=== PATIENT | male | born 1965 | race Caucasian/White ===

== ENCOUNTER 2016-11-11 09:12 | Day surgery (SDC) | payer BC ==
[~2016-11-11 09:12] MED LIST: Lactated Ringers 1,000 ML IV SCH; ceFAZolin 2 GM in Premix Bag 1 BAG IV ONE
[2016-11-11] MEDS ORDERED: Lidocaine 2% 5 ML SDV ONE (09:16)
[2016-11-11] MEDS ORDERED: Neostigmine Methylsulfate 1 MG/ML 5 ML Syringe ONE (09:16)
[2016-11-11] MEDS ORDERED: Rocuronium 10 MG/ML 10 ML Syringe ONE (09:16)
[2016-11-11] MEDS ORDERED: Ondansetron 4 MG/2 ML SDV ONE (09:16)
[2016-11-11] MEDS ORDERED: fentaNYL 100 MCG/2 ML SDV ONE ×3 (09:17→12:03)
[2016-11-11] MEDS ORDERED: Midazolam 1 MG/ML 2 ML SDV ONE (09:17)
[2016-11-11] MEDS ORDERED: Propofol 200 MG/20 ML SDV ONE (09:17)
[2016-11-11] MEDS ORDERED: Octyl 2-Cyanoacrylate 1 Tube ONE (09:28)
[2016-11-11] MEDS ORDERED: Bupivacaine 0.25%/EPINEPHrine 1:200,000 10 ML SDV ONE (09:28)
[2016-11-11] MEDS ORDERED: Scopolamine 1.5 MG Transdermal Patch TRDERM PRN (10:09)
--- NOTE | 2016-11-11 10:13 | PCM.PREANE ---
Preanesthetic Assessment - Anesthesia/Transfusion/Family Hx Anesthesia History: Prior Anesthesia Without Reaction Family History of Anesthesia Reaction: No Transfusion History: No Prior Transfusion(s) Intubation History: Unknown - Review of Systems General: No Symptoms Pulmonary: No Symptoms Cardiovascular: No Symptoms Gastrointestinal: Abdominal Pain Neurological: No Symptoms Other: Reports: None - Physical Assessment ASA Class: 2 Mental Status: Alert & Oriented x3 Airway Class: Mallampati = 2 Dentition: Reports: Normal Dentition Thyro-Mental Finger Breadths: 3 Mouth Opening Finger Breadths: 2 ROM/Head Extension: Full Lungs: Clear to Auscultation, Normal Respiratory Effort Cardiovascular: Regular Rate, Regular Rhythm - Allergies Allergies/Adverse Reactions: Allergies Allergy/AdvReac Type Severity Reaction Status Date / Time No Known Allergies Allergy Verified 11/05/16 11:38 - Blood Blood Available: No - Anesthesia Plan Pre-Op Medication Ordered: None - Acknowledgements Anesthesia Type Planned: General Anesthesia Pt an Appropriate Candidate for the Planned Anesthesia: Yes Alternatives and Risks of Anesthesia Discussed w Pt/Guardian: Yes Pt/Guardian Understands and Agrees with Anesthesia Plan: Yes PreAnesthesia Questionnaire HEENT History: Reports: None Gastrointestinal History: Reports: Cholelithiasis, GERD Musculoskeletal History: Reports: Fracture Other Musculoskeletal History: hx of fx left wrist Endocrine/Metabolic History: Reports: Obesity/BMI 30+ - Past Surgical History HEENT Surgical History: Reports: Oral Surgery, Tonsillectomy GI Surgical History: Reports: None Musculoskeletal Surgical History: Reports: None - SUBSTANCE USE Smoking Status *Q: Current Every Day Smoker (3/4-1 ppd) Tobacco Use Within Last Twelve Months: Cigarettes Recreational Drug Use History: No - HOME MEDS Home Medications: Home Meds Esomeprazole [NexIUM] 40 mg PO DAILY 11/05/16 [History] - CURRENT (IN HOUSE) MEDS Current Meds: Current Medications Lactated Ringer's (Ringers, Lactated) 1,000 mls @ 125 mls/hr IV ASDIRECTED DAMIEN Last Admin: 11/11/16 09:54 Dose: 125 mls/hr Discontinued Medications Bupivacaine HCl/Epinephrine Bitart (Marcaine 0.25%/Epinephrine 1:200,000) Confirm Administered Dose 40 ml .ROUTE .STK-MED ONE Stop: 11/11/16 09:29 Fentanyl (Sublimaze) Confirm Administered Dose 200 mcg .ROUTE .STK-MED ONE Stop: 11/11/16 09:18 Glycopyrrolate () Confirm Administered Dose 1 mg .ROUTE .STK-MED ONE Stop: 11/11/16 09:17 Cefazolin Sodium/Dextrose 2 gm (/ Premix) 50 mls @ 100 mls/hr IV ONETIME ONE Stop: 11/11/16 05:29 Lidocaine (Xylocaine-Mpf 2%) Confirm Administered Dose 5 ml .ROUTE .STK-MED ONE Stop: 11/11/16 09:17 Midazolam HCl (Versed 1 Mg/Ml) Confirm Administered Dose 2 mg .ROUTE .STK-MED ONE Stop: 11/11/16 09:18 Neostigmine Methylsulfate (Neostigmine) Confirm Administered Dose 5 mg .ROUTE .STK-MED ONE Stop: 11/11/16 09:17 Octyl Cyanoacrylate (Dermabond Advance) Confirm Administered Dose 1 applic .ROUTE .STK-MED ONE Stop: 11/11/16 09:29 Ondansetron HCl (Zofran) Confirm Administered Dose 4 mg .ROUTE .STK-MED ONE Stop: 11/11/16 09:17 Propofol (Diprivan 20 Ml) Confirm Administered Dose 200 mg .ROUTE .STK-MED ONE Stop: 11/11/16 09:18 Rocuronium [place] (Zemuron) Confirm Administered Dose 100 mg .ROUTE .STK-MED ONE Stop: 11/11/16 09:17
[2016-11-11] MEDS ORDERED: Acetaminophen/oxyCODONE 325-10 MG Tab PO ONE (11:23)
[2016-11-11] MEDS ORDERED: ceFAZolin 1 GM Vial ONE (11:32)
[2016-11-11] MEDS ORDERED: Sodium Chloride 0.9% 20 ML ONE (11:32)
[2016-11-11] MEDS ORDERED: ePHEDrine 50 MG/ML SDV ONE (11:47)
[2016-11-11] MEDS ORDERED: Labetalol 100 MG/20 ML MDV ONE (11:56)
[2016-11-11] MEDS ORDERED: Sugammadex Sodium 200 MG/2 ML VIAL ONE (12:20)
--- NOTE | 2016-11-11 12:33 | PCM.OPNOTE ---
- General Post-Op/Procedure Note Date of Surgery/Procedure: 11/11/16 Operative Procedure(s): lap brien Findings: gb is severely adhered to surrounding organs, yellow and green, cw chronic cholecystitis, 2 large gs bigger than my thumbs; [id number] Pre Op Diagnosis: chronic and acute cholecystitis Post-Op Diagnosis: Same Anesthesia Technique: General ET Tube Primary Surgeon: Dayton Villagran Pathology: sent Complications: None Condition: Good
[2016-11-11] MEDS: fentaNYL 100 MCG/2 ML SDV IVPUSH PRN ×2 (12:52→12:57)
--- NOTE | 2016-11-11 13:09 | PCM.POSTAN ---
POST ANESTHESIA ASSESSMENT - MENTAL STATUS Mental Status: Alert, Oriented - RESPIRATORY Respiratory Status: Respiratory Rate WNL, Airway Patent, O2 Saturation Stable - CARDIOVASCULAR CV Status: Pulse Rate WNL, Blood Pressure Stable - GASTROINTESTINAL GI Status: No Symptoms - PAIN Pain Score: 3 - POST OP HYDRATION Hydration Status: Adequate & Stable
[2016-11-11] MEDS ORDERED: Acetaminophen/oxyCODONE 325-10 MG Tab ONE ×2 (13:28→13:34)
[2016-11-11] MEDS ORDERED: Ketorolac 30 MG/ML SDV IVPUSH ONE (13:51)
[2016-11-11 14:28] VITALS: BP 137/92
--- NOTE | 2016-11-11 14:39 | PCM48HPAN ---
Post Anesthesia Note - EVALUATION WITHIN 48HRS OF ANESTHETIC Vital Signs in Normal Range: Yes Patient Participated in Evaluation: Yes Respiratory Function Stable: Yes Airway Patent: Yes Cardiovascular Function Stable: Yes Hydration Status Stable: Yes Pain Control Satisfactory: Yes Nausea and Vomiting Control Satisfactory: Yes Mental Status Recovered: Yes
--- NOTE | 2016-11-11 20:29 | OR ---
SURGEON: Dayton Villagran MD DATE OF PROCEDURE: 11/11/2016 PREOPERATIVE DIAGNOSIS: Acute on chronic cholecystitis. POSTOPERATIVE DIAGNOSIS: Acute on chronic cholecystitis. PROCEDURE PERFORMED: Laparoscopic cholecystectomy. COMPLICATIONS: None. FINDINGS: Gallbladder was with severe adherence to surrounding organ and yellow and green consistent with chronic cholecystitis. Wall is not thickened. Two large gallstones bigger than your thumb. DESCRIPTION OF PROCEDURE: The patient was taken to the operating room and placed in the supine position. After the intubation of general endotracheal anesthesia, the patient's abdomen was prepped and draped in the usual sterile fashion. Using Cashkaroview, a 12 mm trocar was placed supraumbilically and then followed with pneumoperitoneum. A 5 mm trocar was placed in the epigastrium and two 5 mm trocars placed in the right upper quadrant. The placement of the last three trocars was done under direct video supervision. Upon gaining entrance to the abdominal cavity, an extensive examination was then performed. The gallbladder was located and identified and retracted to the dome of the liver at the triangle of Calot. The cystic duct was clipped three more times and then using the endoscopic clip, was transected with placement of the endoscopic clip and transection was performed with care, ensuring the posterior prong of the instruments were clearly visualized prior to exercising the procedure. The gallbladder was dissected using electrocautery out of the liver bed and then removed using endoscopic bag through the umbilical site. The gallbladder was removed en bloc and there was no bile spillage and this was then followed with extensive irrigation until the bile was clear from blood and bile. The trocars were then removed under direct video supervision. The 12 mm umbilical site was then closed with deep stitches using 0 Vicryl followed with proximal stitches using 3-0 Vicryl and Dermabond. The other three trocar sites were closed with 3-0 Vicryl followed with approximation of skin with Dermabond. The patient was then awakened and extubated and transferred to the recovery room in hemodynamically stable condition. At the conclusion of the surgery, before closing the abdominal wound, instrument count and sponge count were done and were correct. The patient tolerated the procedure well and there were no intraoperative complications. Dr. Villagran was present through the whole procedure. Just before surgery, a timeout was called. The patient was identified and procedure identified and procedure started. Intraoperative findings as dictated above. As always, thank you for the kind referral. AZIZA / MAGUI /[id number]
== END 2016-11-11 15:00 | disposition home or self-care (01) ==
LOC: MW.SDS 09:12
PROVIDERS: ATTEND Surgery
DX: K80.10 Calculus of gallbladder with chronic cholecystitis without obstruction (principal); F17.210 Nicotine dependence, cigarettes, uncomplicated; K21.9 Gastro-esophageal reflux disease without esophagitis; E66.9 Obesity, unspecified; Z79.899 Other long term (current) drug therapy; Z90.89 Acquired absence of other organs; Z68.30 Body mass index [BMI] 30.0-30.9, adult
CPT/HCPCS: 47562; A9270; C9399; J0690; J1885; J2250; J2405; J3010; J7120; 00790; 88304; J2704

== ENCOUNTER 2016-12-28 11:42 | Day surgery (SDC) | payer BC ==
[~2016-12-28 11:42] MED LIST changes: -ceFAZolin 2 GM in Premix Bag 1 BAG IV ONE
--- NOTE | 2016-12-28 12:28 | PCM.PREANE ---
Preanesthetic Assessment - Anesthesia/Transfusion/Family Hx Anesthesia History: Prior Anesthesia Without Reaction Family History of Anesthesia Reaction: No Transfusion History: No Prior Transfusion(s) Intubation History: Unknown - Review of Systems General: No Symptoms Pulmonary: No Symptoms Cardiovascular: No Symptoms Gastrointestinal: Other (intermittent rectal bleeding) Neurological: No Symptoms Other: Reports: None - Physical Assessment O2 Sat by Pulse Oximetry: 97 Respiratory Rate: 16 Vital Signs: Last Vital Signs Temp 36.2 C 12/28/16 11:56 Pulse 86 12/28/16 11:56 Resp 16 12/28/16 11:56 BP 152/105 H 12/28/16 11:56 Pulse Ox 97 12/28/16 11:56 Height: 1.83 m Weight: 102.512 kg ASA Class: 2 Mental Status: Alert & Oriented x3 Airway Class: Mallampati = 2 Dentition: Reports: Normal Dentition Thyro-Mental Finger Breadths: 3 Mouth Opening Finger Breadths: 2 ROM/Head Extension: Full Lungs: Clear to Auscultation, Normal Respiratory Effort Cardiovascular: Regular Rate, Regular Rhythm - Allergies Allergies/Adverse Reactions: Allergies Allergy/AdvReac Type Severity Reaction Status Date / Time No Known Allergies Allergy Verified 11/05/16 11:38 - Blood Blood Available: No - Anesthesia Plan Pre-Op Medication Ordered: None - Acknowledgements Anesthesia Type Planned: MAC Pt an Appropriate Candidate for the Planned Anesthesia: Yes Alternatives and Risks of Anesthesia Discussed w Pt/Guardian: Yes Pt/Guardian Understands and Agrees with Anesthesia Plan: Yes PreAnesthesia Questionnaire - Past Health History Medical/Surgical History: Denies Medical/Surgical History HEENT History: Reports: None Gastrointestinal History: Reports: Cholelithiasis (s/p cholecystectomy 11/11/16) , GERD Musculoskeletal History: Reports: Fracture Other Musculoskeletal History: hx of fx left wrist Endocrine/Metabolic History: Reports: Obesity/BMI 30+ - Past Surgical History Head Surgeries/Procedures: Reports: None HEENT Surgical History: Reports: Oral Surgery, Tonsillectomy GI Surgical History: Reports: Cholecystectomy Other GI Surgeries/Procedures: lap brien on 11/11/16 Musculoskeletal Surgical History: Reports: None - SUBSTANCE USE Smoking Status *Q: Current Every Day Smoker Tobacco Use Within Last Twelve Months: Cigarettes Recreational Drug Use History: No - HOME MEDS Home Medications: Home Meds Esomeprazole [NexIUM] 40 mg PO DAILY 11/05/16 [History] - CURRENT (IN HOUSE) MEDS Current Meds: Current Medications Lactated Ringer's (Ringers, Lactated) 1,000 mls @ 125 mls/hr IV ASDIRECTED [facility] Last Admin: 12/28/16 12:03 Dose: 125 mls/hr
[2016-12-28] MEDS ORDERED: Propofol 200 MG/20 ML SDV ONE ×2 (12:55→13:22)
[2016-12-28] MEDS ORDERED: Midazolam 1 MG/ML 2 ML SDV ONE (12:55)
--- NOTE | 2016-12-28 13:35 | PCM.OPNOTE ---
- General Post-Op/Procedure Note Date of Surgery/Procedure: 12/28/16 (c) Operative Procedure(s): colonoscopy Findings: see dict 132110 Pre Op Diagnosis: rectal bleed Post-Op Diagnosis: diverticulosis Anesthesia Technique: Moderate Sedation Primary Surgeon: Dayton Villagran Complications: None Condition: Good
[2016-12-28 14:03] VITALS: BP 151/87
--- NOTE | 2016-12-29 11:14 | OR ---
SURGEON: Dayton Villagran MD DATE OF PROCEDURE: 12/28/2016 PREOPERATIVE DIAGNOSIS: Intermittent rectal bleeding. POSTOPERATIVE DIAGNOSIS: Diverticulosis. COMPLICATIONS: None. PROCEDURE PERFORMED: Colonoscopy. DESCRIPTION OF PROCEDURE: The patient was taken to the endoscopy room. A time out was called, patient identified, and procedure identified. Diprivan was then administrated. Patient went from awake to sleep, hearing doctor talking or door closing is normal. Perineum inspection and digital examination were then performed. A well- lubricated colonoscope was gently inserted through the rectum, advanced past the rectosigmoid junction, the descending colon, splenic flexure, transverse colon, hepatic flexure, ascending colon, arrived to the cecum. Cecum was identified as dictated in the findings. Then the scope was carefully withdrawn, while attention was paid to the mucosal surface for any abnormality. Air will be sucked out during the scope withdrawal. At the rectum, retroflexed to examine any rectal diseases, fistula or hemorrhoids. Patient tolerated procedure well. There were no intraoperative complications, and Dr. Villagran was present throughout the whole procedure. FINDINGS: 1. The patient is easily sedated with LIVE[employer]OCK AGENT and Diprivan. The patient is soundly snoring. 2. The patient's bowel prep is average with some liquid stool. No semi-formed stool. 3. The patient's colon was rather straightforward. Cecum indicated by ileocecal fold, one-to-one indentation, appendiceal orifice. Light emittance is not observed. Mucosa examined upon scope pulling out, and the patient has mild diverticulosis on the left side of the colon and no signs or symptoms of diverticulitis. No inflammation, stricture, ulceration, bleeding, AV malformation, mass, growth, polyp; none of those. The patient has mild internal hemorrhoids and mild external hemorrhoids. The patient would benefit from repeat colonoscopy 10 years from today or if clinically indicated otherwise. As always, thank you for the kind referral. AZIZA / MAGUI /[id number]
== END 2016-12-28 14:16 | disposition home or self-care (01) ==
LOC: MW.SDS 11:42
PROVIDERS: ATTEND Surgery
DX: K57.30 Diverticulosis of large intestine without perforation or abscess without bleeding (principal); K21.9 Gastro-esophageal reflux disease without esophagitis; Z79.899 Other long term (current) drug therapy
CPT/HCPCS: 45378; J2250; J7120; J2704

== ENCOUNTER 2020-09-24 12:13 | Day surgery (SDC) | payer SELFPAY ==
[2020-09-24] MEDS ORDERED: Sodium Chloride 0.9% 10 ML Syringe FLUSH PRN (12:18)
[2020-09-24] MEDS ORDERED: Sodium Chloride 0.9% 2.5 ML Syringe FLUSH PRN (12:18)
--- NOTE | 2020-09-24 12:25 | EDM.PDOC ---
ED HPI GENERAL MEDICAL PROBLEM - General Chief Complaint: Abdominal Pain Stated Complaint: POSSIBLE APPENDICITIS Time Seen by Provider: 09/24/20 12:14 Source of Information: Reports: Patient History Limitations: Reports: No Limitations - History of Present Illness INITIAL COMMENTS - FREE TEXT/NARRATIVE: HISTORY AND PHYSICAL: History of present illness: Patient is a 54-year-old male who presents to the emergency room with complaints of right lower quadrant pain that started at 0100 this morning. Pain has progressively become more significant and is associated with nausea and vomiting. Abdomen is tender to touch. States he feels lightheaded and generally unwell. Patient denies any fever, chills, headache, change in vision, syncope or near syncope. Denies any chest pain, back pain, shortness of breath or cough. Denies any diarrhea, constipation or dysuria. Has not noted any blood in urine or stool. Denies any testicular pain, redness or swelling. Patient has been eating and drinking appropriately. Last ate/drank at 0700. Review of systems: As per history of present illness and below otherwise all systems reviewed and negative. Past medical history: As per history of present illness and as reviewed below otherwise noncontributory. Surgical history: As per history of present illness and as reviewed below otherwise noncontributory. Social history: See social history for further information Family history: As per history of present illness and as reviewed below otherwise noncontributory. Physical exam: General: Well developed and well nourished 54 year old male. Alert and orientated x 3. Nontoxic in appearance and in no acute distress. Vital signs are stable and have been reviewed by me. Nursing notes were reviewed. HEENT: Atraumatic, normocephalic, pupils equal and reactive bilaterally, negative for conjunctival pallor or scleral icterus, mucous membranes moist, trachea midline. No drooling or trismus noted. No meningeal signs. No hot potato voice noted. Lungs: Clear to auscultation bilaterally. No wheezes, rales, or rhonchi. Chest nontender. Normal work of breathing, no accessory muscles used. Heart: S1S2, regular rate and rhythm without overt murmur, gallops, or rubs. No JVD. No peripheral edema Abdomen: Soft, nondistended, RLQ tenderness, +rebound tenderness. Normoactive bowel sounds. Negative for masses or costovertebral tenderness. Skin: Intact, warm, dry. No lesions or rashes noted. Hematologic: No petechiae or purpra. Mucosa appropriate color and normal nail bed color and refill. Extremities: Atraumatic, moves all extremities per self without difficulty or deficits, negative for cords or calf pain. Neurovascular unremarkable. Neuro: Awake, alert, oriented. Cranial nerves II through XII unremarkable. Cerebellum unremarkable. Motor and sensory unremarkable throughout. Exam nonfocal. Psychiatric: Mood and affect are appropriate. Normal thought process. Answering questions appropriately. Notes: *This patient was seen and evaluated during the 2019 SARS-CoV-2 novel coronavirus pandemic period. Community viral transmission is ongoing at time of this encounter and the emergency department is operating under pandemic response procedures. Patient is a 54-year-old male who presents to the emergency room with complaints of right lower quadrant pain, nausea and vomiting. He is concerned he has appendicitis. + RLQ tenderness upon evaluation. Last ate or drank at 7 AM this morning. Patient was educated on n.p.o. status and is agreeable to diagnostics. Acute uncomplicated appendicitis. Multiple large appendicoliths. No evidence of perforation or abscess. 1500: Dr Amador was informed of patient and will come to ER shortly. Patient is aware of diagnostic findings. He states his nasuea and pain is starting to "creep back", will give him additional medication for symptomatic relief. VSS. Will swab for COVID-19 prior to the OR. Negative COVID-19. VSS. Patient resting quietly, offers no complaints or concerns as this time. 1600: Dr Amador here to see patient. Diagnostics: CBC, CMP, Lipase, UA Therapeutics: IV fluids, zofran, morphine Impression: Appendicitis Plan: To OR Definitive disposition and diagnosis as appropriate pending reevaluation and review of above. RLQ Pain Score (Numeric/FACES): 8 - Related Data Allergies Allergy/AdvReac Type Severity Reaction Status Date / Time No Known Allergies Allergy Verified 09/24/20 12:37 Home Meds: Home Meds Esomeprazole [NexIUM] 40 mg PO DAILY 11/05/16 [History] Past Medical History - Past Health History Medical/Surgical History: Denies Medical/Surgical History HEENT History: Reports: None Gastrointestinal History: Reports: Cholelithiasis (s/p cholecystectomy 11/11/16), GERD Musculoskeletal History: Reports: Fracture Other Musculoskeletal History: hx of fx left wrist Endocrine/Metabolic History: Reports: Obesity/BMI 30+ - Past Surgical History Head Surgeries/Procedures: Reports: None HEENT Surgical History: Reports: Oral Surgery, Tonsillectomy GI Surgical History: Reports: Cholecystectomy Other GI Surgeries/Procedures: lap brien on 11/11/16 Musculoskeletal Surgical History: Reports: None Social & Family History - Family History Family Medical History: No Pertinent Family History ED ROS GENERAL - Review of Systems Review Of Systems: Comprehensive ROS is negative, except as noted in HPI. ED EXAM, GI/ABD - Physical Exam Exam: See Below (See dictation) Course - Vital Signs Last Recorded V/S: Last Vital Signs Temp 95.8 F L 09/24/20 12:35 Pulse 67 09/24/20 15:49 Resp 18 09/24/20 15:49 BP 194/101 H 09/24/20 15:49 Pulse Ox 95 09/24/20 15:49 - Orders/Labs/Meds Orders: Active Orders 24 hr Category Date Time Status Admission Status [Patient Status] [ADT] Stat ADT 09/24/20 15:02 Active UA RFX ROB AND CULT IF INDIC [URIN] Stat Lab 09/24/20 15:57 Received Lactated Ringers [Ringers, Lactated] 1,000 ml Med 09/24/20 14:00 Active IV ASDIRECTED Sodium Chloride 0.9% [Saline Flush] Med 09/24/20 12:18 Active 10 ml FLUSH ASDIRECTED PRN Sodium Chloride 0.9% [Saline Flush] Med 09/24/20 12:18 Active 2.5 ml FLUSH ASDIRECTED PRN Saline Lock Insert [OM.PC] Stat Oth 09/24/20 12:18 Ordered Medication Orders Lactated Ringer's (Ringers, Lactated) 1,000 mls @ 100 mls/hr IV ASDIRECTED DAMIEN Last Admin: 09/24/20 13:51 Dose: 100 mls/hr Documented by: MURDNIC Sodium Chloride (Sodium Chloride 0.9% 10 Ml Syringe) 10 ml FLUSH ASDIRECTED PRN PRN Reason: Keep Vein Open Last Admin: 09/24/20 12:43 Dose: 10 ml Documented by: GROTALI Sodium Chloride (Sodium Chloride 0.9% 2.5 Ml Syringe) 2.5 ml FLUSH ASDIRECTED PRN PRN Reason: Keep Vein Open Last Admin: 09/24/20 12:43 Dose: 2.5 ml Documented by: LADONNA Labs: Laboratory Tests 09/24/20 09/24/20 09/24/20 Range/Units 12:46 12:46 14:57 WBC 10.63 (4.0-11.0) K/uL RBC 5.45 (4.50-5.90) M/uL Hgb 15.4 (13.0-17.0) g/dL Hct 46.1 (38.0-50.0) % MCV 84.6 (80.0-98.0) fL MCH 28.3 (27.0-32.0) pg MCHC 33.4 (31.0-37.0) g/dL RDW Std Deviation 41.4 (28.0-62.0) fl RDW Coeff of Tammie 14 (11.0-15.0) % Plt Count 351 (150-400) K/uL MPV 9.80 (7.40-12.00) fL Neut % (Auto) 81.0 H (48.0-80.0) % Lymph % (Auto) 11.4 L (16.0-40.0) % [place] % (Auto) 6.4 (0.0-15.0) % Eos % (Auto) 0.9 (0.0-7.0) % Baso % (Auto) 0.3 (0.0-1.5) % Neut # (Auto) 8.6 H (1.4-5.7) K/uL Lymph # (Auto) 1.2 (0.6-2.4) K/uL [place] # (Auto) 0.7 (0.0-0.8) K/uL Eos # (Auto) 0.1 (0.0-0.7) K/uL Baso # (Auto) 0.0 (0.0-0.1) K/uL Nucleated RBC % 0.0 /100WBC Nucleated RBCs # 0 K/uL Sodium 139 (136-148) mmol/L Potassium 4.2 (3.5-5.1) mmol/L Chloride 103 (98-107) mmol/L Carbon Dioxide 30.2 (21.0-32.0) mmol/L BUN 10 (7.0-18.0) mg/dL Creatinine 1.3 (0.8-1.3) mg/dL Est Cr Clr Drug Dosing 72.13 mL/min Estimated GFR (MDRD) 57.7 ml/min Glucose 142 H (74-106) mg/dL Calcium 9.1 (8.5-10.1) mg/dL Total Bilirubin 0.3 (0.2-1.0) mg/dL AST 17 (15-37) IU/L ALT 32 (14-63) IU/L Alkaline Phosphatase 97 (46-116) U/L Total Protein 8.2 (6.4-8.2) g/dL Albumin 4.3 (3.4-5.0) g/dL Globulin 3.9 (2.6-4.0) g/dL Albumin/Globulin Ratio 1.1 (0.9-1.6) SARS-CoV-2 RNA (ELISE) NEGATIVE (NEGATIVE) Meds: Medications Generic Name Dose Route Start Last Admin Trade Name Freq PRN Reason Stop Dose Admin Lactated Ringer's 1,000 mls @ 100 mls/hr 09/24/20 14:00 09/24/20 13:51 Ringers, Lactated IV 100 mls/hr ASDIRECTED DAMIEN Administration Sodium Chloride 10 ml 09/24/20 12:18 09/24/20 12:43 Sodium Chloride 0.9% 10 Ml Syringe FLUSH 10 ml ASDIRECTED PRN Administration Keep Vein Open Sodium Chloride 2.5 ml 09/24/20 12:18 09/24/20 12:43 Sodium Chloride 0.9% 2.5 Ml Syringe FLUSH 2.5 ml ASDIRECTED PRN Administration Keep Vein Open Discontinued Medications Generic Name Dose Route Start Last Admin Trade Name Freq PRN Reason Stop Dose Admin Sodium Chloride 1,000 mls @ 999 mls/hr 09/24/20 12:37 09/24/20 12:43 Normal Saline IV 09/24/20 13:37 999 mls/hr STAT ONE Administration Iopamidol 100 ml 09/24/20 14:32 09/24/20 14:32 Iopamidol 755 Mg/Ml 500 Ml Multipack Bottle IVPUSH 09/24/20 14:33 100 ml ONETIME STA Administration Morphine Sulfate 4 mg 09/24/20 12:37 09/24/20 12:44 Morphine 4 Mg/Ml Syringe IVPUSH 09/24/20 12:38 4 mg ONETIME ONE Administration Morphine Sulfate 4 mg 09/24/20 13:41 09/24/20 13:46 Morphine 4 Mg/Ml Syringe IVPUSH 09/24/20 13:42 4 mg ONETIME ONE Administration Morphine Sulfate 4 mg 09/24/20 15:05 09/24/20 15:25 Morphine 4 Mg/Ml Syringe IVPUSH 09/24/20 15:06 4 mg ONETIME ONE Administration Ondansetron HCl 4 mg 09/24/20 12:37 09/24/20 12:44 Ondansetron 4 Mg/2 Ml Sdv IVPUSH 09/24/20 12:38 4 mg ONETIME ONE Administration Ondansetron HCl 4 mg 09/24/20 15:05 09/24/20 15:25 Ondansetron 4 Mg/2 Ml Sdv IVPUSH 09/24/20 15:06 4 mg ONETIME ONE Administration Departure - Departure Time of Disposition: 16:12 Disposition: Still A Patient 30 Clinical Impression: Appendicitis Qualifiers: Appendicitis type: acute appendicitis Acute appendicitis type: with localized peritonitis Appendicitis gangrene presence: without gangrene Appendicitis perforation presence: without perforation Appendicitis abscess presence: without abscess Qualified Code(s): K35.30 - Acute appendicitis with localized peritonitis, without perforation or gangrene - Discharge Information Referrals: PCP,None [Primary Care Provider] - Forms: ED Department Discharge Sepsis Event Note (ED) - Focused Exam Vital Signs: Vital Signs Temp Pulse Resp BP Pulse Ox 09/24/20 15:49 67 18 194/101 H 95 09/24/20 14:00 62 16 185/94 H 97 09/24/20 13:17 62 18 178/93 H 96 09/24/20 12:35 95.8 F L 75 18 169/101 H 97 - My Orders Last 24 Hours: My Active Orders 09/24/20 12:18 Sodium Chloride 0.9% [Saline Flush] 10 ml FLUSH ASDIRECTED PRN Sodium Chloride 0.9% [Saline Flush] 2.5 ml FLUSH ASDIRECTED PRN Saline Lock Insert [OM.PC] Stat 09/24/20 14:00 Lactated Ringers [Ringers, Lactated] 1,000 ml IV ASDIRECTED 09/24/20 15:02 Admission Status [Patient Status] [ADT] Stat 09/24/20 15:57 UA RFX ROB AND CULT IF INDIC [URIN] Stat - Assessment/Plan Last 24 Hours: My Active Orders 09/24/20 12:18 Sodium Chloride 0.9% [Saline Flush] 10 ml FLUSH ASDIRECTED PRN Sodium Chloride 0.9% [Saline Flush] 2.5 ml FLUSH ASDIRECTED PRN Saline Lock Insert [OM.PC] Stat 09/24/20 14:00 Lactated Ringers [Ringers, Lactated] 1,000 ml IV ASDIRECTED 09/24/20 15:02 Admission Status [Patient Status] [ADT] Stat 09/24/20 15:57 UA RFX ROB AND CULT IF INDIC [URIN] Stat
[2020-09-24] MEDS ORDERED: Ondansetron 4 MG/2 ML SDV IVPUSH ONE ×2 (12:37→15:05)
[2020-09-24] MEDS ORDERED: Morphine 4 MG/ML Syringe IVPUSH ONE ×3 (12:37→15:05)
[2020-09-24] MEDS ORDERED: Sodium Chloride 0.9% 1,000 ML IV ONE (12:37)
[2020-09-24 13:11] LABS: CARBON DIOXIDE,CO2 30.2 mmol/L (21.0-32.0); POTASSIUM,K 4.2 mmol/L (3.5-5.1)
[2020-09-24] MEDS ORDERED: Lactated Ringers 1,000 ML IV SCH ×2 (14:00→16:30)
[2020-09-24] MEDS ORDERED: Iopamidol 755 MG/ML 500 ML Multipack Bottle IVPUSH STA (14:32)
--- NOTE | 2020-09-24 14:51 | CT ---
INDICATION: Extreme right lower quadrant pain. TECHNIQUE: CT of the abdomen and pelvis with 100 cc Isovue 370 IV contrast. Coronal and sagittal reconstructions. COMPARISON: None. FINDINGS: The liver, spleen, pancreas, and adrenal glands are negative. Splenule. Cholecystectomy. Hepatic and portal veins are patent. Symmetric enhancement of the kidneys. No hydronephrosis or ureteral dilation. No obstructing urinary calculi. The bladder is normal in appearance. Mildly enlarged prostate gland. Small fat containing right inguinal hernia. The appendix is dilated and fluid-filled with mild surrounding inflammatory fat stranding, measuring up to 1.6 cm in diameter (series 201, image 115 and series 203, image 58). Findings are compatible with acute appendicitis. There are multiple large appendicoliths. No fluid collection to suggest abscess. No intraperitoneal free air or fluid. Mild sigmoid diverticulosis. No small bowel dilation. Aortic vascular calcifications. No lymphadenopathy. The bones are unremarkable. The lung bases are clear. IMPRESSION: Acute uncomplicated appendicitis. Multiple large appendicoliths. No evidence of perforation or abscess. Please note that all CT scans at this facility use dose modulation, iterative reconstruction, and/or weight-based dosing when appropriate to reduce radiation dose to as low as reasonably achievable. Dictated by Karina Goncalves MD @ 09/24/2020 2:50:[address] Karina Goncalves @ Sep 24 2020 2:50PM
[2020-09-24] MEDS ORDERED: cefOXitin 2 GM in Premix Bag 1 BAG IV ONE (16:19)
[2020-09-24] MEDS ORDERED: Lidocaine 2% 5 ML SDV ONE (16:27)
[2020-09-24] MEDS ORDERED: Glycopyrrolate 0.2 MG/ML SDV ONE (16:27)
[2020-09-24] MEDS ORDERED: Ketorolac 30 MG/ML SDV ONE (16:27)
[2020-09-24] MEDS ORDERED: Metoclopramide 10 MG/2 ML SDV ONE (16:27)
[2020-09-24] MEDS ORDERED: Rocuronium Bromide 50 MG/5 ML Syringe ONE (16:27)
[2020-09-24] MEDS ORDERED: Sugammadex Sodium 200 MG/2 ML VIAL ONE (16:27)
[2020-09-24] MEDS ORDERED: Ondansetron 4 MG/2 ML SDV ONE (16:27)
[2020-09-24] MEDS ORDERED: Dexamethasone 4 MG/ML 5 ML MDV ONE (16:27)
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
[2020-09-24] MEDS ORDERED: Ketamine 500 mg/10 ML MDV ONE (16:28)
[2020-09-24] MEDS ORDERED: Succinylcholine/Sod PF 100 MG/5 ML SYRINGE IV ONE (16:29)
[2020-09-24] MEDS ORDERED: fentaNYL 250 MCG/5 ML SDV ONE (16:29)
[2020-09-24] MEDS ORDERED: Propofol 200 MG/20 ML SDV ONE (16:30)
[2020-09-24] MEDS ORDERED: Dexmedetomidine 200 MCG/2 ML SDV ONE (16:36)
[2020-09-24] MEDS ORDERED: Sodium Chloride 0.9% 20 ML ONE (16:40)
[2020-09-24] MEDS ORDERED: Bupivacaine 0.5% 30 ML SDV ONE (16:41)
[2020-09-24] MEDS ORDERED: ceFAZolin 1 GM Vial ONE (16:41)
--- NOTE | 2020-09-24 16:56 | PCM.PREANE ---
Preanesthetic Assessment - Anesthesia/Transfusion/Family Hx Anesthesia History: Prior Anesthesia Without Reaction Family History of Anesthesia Reaction: No Transfusion History: No Prior Transfusion(s) Intubation History: Unknown - Review of Systems Pulmonary: Other (smokes) Cardiovascular: No Symptoms Gastrointestinal: Abdominal Pain Neurological: No Symptoms Other: Reports: None - Physical Assessment NPO Status Date: 09/24/20 NPO Status Time: 07:00 Vital Signs: Last Vital Signs Temp 35.4 C L 09/24/20 12:35 Pulse 67 09/24/20 15:49 Resp 18 09/24/20 15:49 BP 194/101 H 09/24/20 15:49 Pulse Ox 95 09/24/20 15:49 Height: 6 ft Weight: 99.79 kg ASA Class: 2E Mental Status: Alert & Oriented x3 Airway Class: Mallampati = 2 Dentition: Reports: Normal Dentition Thyro-Mental Finger Breadths: 3 Mouth Opening Finger Breadths: 3 ROM/Head Extension: Full Lungs: Clear to Auscultation, Normal Respiratory Effort Cardiovascular: Regular Rate, Regular Rhythm - Lab Values: Laboratory Last Values WBC 10.63 K/uL (4.0-11.0) 09/24/20 12:46 RBC 5.45 M/uL (4.50-5.90) 09/24/20 12:46 Hgb 15.4 g/dL (13.0-17.0) 09/24/20 12:46 Hct 46.1 % (38.0-50.0) 09/24/20 12:46 MCV 84.6 fL (80.0-98.0) 09/24/20 12:46 MCH 28.3 pg (27.0-32.0) 09/24/20 12:46 MCHC 33.4 g/dL (31.0-37.0) 09/24/20 12:46 RDW Std Deviation 41.4 fl (28.0-62.0) 09/24/20 12:46 RDW Coeff of Tammie 14 % (11.0-15.0) 09/24/20 12:46 Plt Count 351 K/uL (150-400) 09/24/20 12:46 MPV 9.80 fL (7.40-12.00) 09/24/20 12:46 Neut % (Auto) 81.0 % (48.0-80.0) H 09/24/20 12:46 Lymph % (Auto) 11.4 % (16.0-40.0) L 09/24/20 12:46 [place] % (Auto) 6.4 % (0.0-15.0) 09/24/20 12:46 Eos % (Auto) 0.9 % (0.0-7.0) 09/24/20 12:46 Baso % (Auto) 0.3 % (0.0-1.5) 09/24/20 12:46 Neut # (Auto) 8.6 K/uL (1.4-5.7) H 09/24/20 12:46 Lymph # (Auto) 1.2 K/uL (0.6-2.4) 09/24/20 12:46 [place] # (Auto) 0.7 K/uL (0.0-0.8) 09/24/20 12:46 Eos # (Auto) 0.1 K/uL (0.0-0.7) 09/24/20 12:46 Baso # (Auto) 0.0 K/uL (0.0-0.1) 09/24/20 12:46 Nucleated RBC % 0.0 /100WBC 09/24/20 12:46 Nucleated RBCs # 0 K/uL 09/24/20 12:46 Sodium 139 mmol/L (136-148) 09/24/20 12:46 Potassium 4.2 mmol/L (3.5-5.1) 09/24/20 12:46 Chloride 103 mmol/L (98-107) 09/24/20 12:46 Carbon Dioxide 30.2 mmol/L (21.0-32.0) 09/24/20 12:46 BUN 10 mg/dL (7.0-18.0) 09/24/20 12:46 Creatinine 1.3 mg/dL (0.8-1.3) 09/24/20 12:46 Est Cr Clr Drug Dosing 72.13 mL/min 09/24/20 12:46 Estimated GFR (MDRD) 57.7 ml/min 09/24/20 12:46 Glucose 142 mg/dL (74-106) H 09/24/20 12:46 Calcium 9.1 mg/dL (8.5-10.1) 09/24/20 12:46 Total Bilirubin 0.3 mg/dL (0.2-1.0) 09/24/20 12:46 AST 17 IU/L (15-37) 09/24/20 12:46 ALT 32 IU/L (14-63) 09/24/20 12:46 Alkaline Phosphatase 97 U/L (46-116) 09/24/20 12:46 Total Protein 8.2 g/dL (6.4-8.2) 09/24/20 12:46 Albumin 4.3 g/dL (3.4-5.0) 09/24/20 12:46 Globulin 3.9 g/dL (2.6-4.0) 09/24/20 12:46 Albumin/Globulin Ratio 1.1 (0.9-1.6) 09/24/20 12:46 Urine Color YELLOW 09/24/20 15:57 Urine Appearance SLT CLOUDY 09/24/20 15:57 Urine pH 7.5 (5.0-8.0) 09/24/20 15:57 Ur Specific [place] 1.020 (1.001-1.035) 09/24/20 15:57 Urine Protein NEGATIVE mg/dL (NEGATIVE) 09/24/20 15:57 Urine Glucose (UA) NEGATIVE mg/dL (NEGATIVE) 09/24/20 15:57 Urine Ketones NEGATIVE mg/dL (NEGATIVE) 09/24/20 15:57 Urine Occult Blood NEGATIVE (NEGATIVE) 09/24/20 15:57 Urine Nitrite NEGATIVE (NEGATIVE) 09/24/20 15:57 Urine Bilirubin NEGATIVE (NEGATIVE) 09/24/20 15:57 Urine Urobilinogen 0.2 EU/dL (<2.0) 09/24/20 15:57 Ur Leukocyte Esterase NEGATIVE (NEGATIVE) 09/24/20 15:57 SARS-CoV-2 RNA (ELISE) NEGATIVE (NEGATIVE) 09/24/20 14:57 - Allergies Allergies/Adverse Reactions: Allergies Allergy/AdvReac Type Severity Reaction Status Date / Time No Known Allergies Allergy Verified 09/24/20 12:37 - Acknowledgements Anesthesia Type Planned: General Anesthesia Pt an Appropriate Candidate for the Planned Anesthesia: Yes Alternatives and Risks of Anesthesia Discussed w Pt/Guardian: Yes Pt/Guardian Understands and Agrees with Anesthesia Plan: Yes PreAnesthesia Questionnaire - Past Health History Medical/Surgical History: Denies Medical/Surgical History HEENT History: Reports: None Cardiovascular History: Reports: None Respiratory History: Reports: None Gastrointestinal History: Reports: Cholelithiasis, GERD Genitourinary History: Reports: None Musculoskeletal History: Reports: Fracture Other Musculoskeletal History: hx of fx left wrist Neurological History: Reports: None Psychiatric History: Reports: None Endocrine/Metabolic History: Reports: Obesity/BMI 30+ Hematologic History: Reports: None Immunologic History: Reports: None Oncologic (Cancer) History: Reports: None Dermatologic History: Reports: None - Infectious Disease History Infectious Disease History: Reports: None - Past Surgical History Head Surgeries/Procedures: Reports: None HEENT Surgical History: Reports: Oral Surgery, Tonsillectomy Cardiovascular Surgical History: Reports: None Respiratory Surgical History: Reports: None GI Surgical History: Reports: Cholecystectomy Other GI Surgeries/Procedures: lap brien on 11/11/16 Male Surgical History: Reports: None Endocrine Surgical History: Reports: None Neurological Surgical History: Reports: None Musculoskeletal Surgical History: Reports: None Oncologic Surgical History: Reports: None Dermatological Surgical History: Reports: None - SUBSTANCE USE Tobacco Use Status *Q: Current Every Day Tobacco User Tobacco Use Within Last Twelve Months: Cigarettes Recreational Drug Use History: No - HOME MEDS Home Medications: Home Meds Esomeprazole [NexIUM] 40 mg PO DAILY 11/05/16 [History] - CURRENT (IN HOUSE) MEDS Current Meds: Current Medications Lactated Ringer's (Ringers, Lactated) 1,000 mls @ 100 mls/hr IV ASDIRECTED [facility] Last Admin: 09/24/20 13:51 Dose: 100 mls/hr Documented by: Lactated Ringer's (Ringers, Lactated) 1,000 mls @ 125 mls/hr IV ASDIRECTED [facility] Last Admin: 09/24/20 16:49 Dose: 125 mls/hr Documented by: Sodium Chloride (Sodium Chloride 0.9% 10 Ml Syringe) 10 ml FLUSH ASDIRECTED PRN PRN Reason: Keep Vein Open Last Admin: 09/24/20 12:43 Dose: 10 ml Documented by: Sodium Chloride (Sodium Chloride 0.9% 2.5 Ml Syringe) 2.5 ml FLUSH ASDIRECTED PRN PRN Reason: Keep Vein Open Last Admin: 09/24/20 12:43 Dose: 2.5 ml Documented by: Discontinued Medications Bupivacaine HCl (Bupivacaine 0.5% 30 Ml Sdv) Confirm Administered Dose 30 ml .ROUTE .STK-MED ONE Stop: 09/24/20 16:42 Cefazolin Sodium (Cefazolin 1 Gm Vial) Confirm Administered Dose 1 gm .ROUTE .STK-MED ONE Stop: 09/24/20 16:42 Dexamethasone (Dexamethasone 4 Mg/Ml 5 Ml Mdv) Confirm Administered Dose 20 mg .ROUTE .STK-MED ONE Stop: 09/24/20 16:28 Dexmedetomidine HCl (Dexmedetomidine 200 Mcg/2 Ml Sdv) Confirm Administered Dose 200 mcg .ROUTE .STK-MED ONE Stop: 09/24/20 16:37 Fentanyl (Fentanyl 250 Mcg/5 Ml Sdv) Confirm Administered Dose 250 mcg .ROUTE .STK-MED ONE Stop: 09/24/20 16:30 Glycopyrrolate (Glycopyrrolate 0.2 Mg/Ml Sdv) Confirm Administered Dose 0.2 mg .ROUTE .STK-MED ONE Stop: 09/24/20 16:28 Sodium Chloride (Normal Saline) 1,000 mls @ 999 mls/hr IV STAT ONE Stop: 09/24/20 13:37 Last Admin: 09/24/20 12:43 Dose: 999 mls/hr Documented by: Cefoxitin Sodium 2 gm/ Premix 50 mls @ 100 mls/hr IV ONETIME ONE Stop: 09/24/20 16:48 Last Admin: 09/24/20 16:49 Dose: 100 mls/hr Documented by: Acetaminophen (Ofirmev 1000 Mg/100 Ml) Confirm Administered Dose 100 mls @ as directed .ROUTE .STK-MED ONE Stop: 09/24/20 16:29 Sodium Chloride (Normal Saline) Confirm Administered Dose 20 mls @ as directed .ROUTE .STK-MED ONE Stop: 09/24/20 16:41 Iopamidol (Iopamidol 755 Mg/Ml 500 Ml Multipack Bottle) 100 ml IVPUSH ONETIME STA Stop: 09/24/20 14:33 Last Admin: 09/24/20 14:32 Dose: 100 ml Documented by: Ketamine HCl (Ketamine 500 Mg/10 Ml Mdv) Confirm Administered Dose 500 mg .ROUTE .STK-MED ONE Stop: 09/24/20 16:29 Ketorolac Tromethamine (Ketorolac 30 Mg/Ml Sdv) Confirm Administered Dose 30 mg .ROUTE .STK-MED ONE Stop: 09/24/20 16:28 Lidocaine (Lidocaine 2% 5 Ml Sdv) Confirm Administered Dose 5 ml .ROUTE .STK-MED ONE Stop: 09/24/20 16:28 Metoclopramide HCl (Metoclopramide 10 Mg/2 Ml Sdv) Confirm Administered Dose 10 mg .ROUTE .STK-MED ONE Stop: 09/24/20 16:28 Morphine Sulfate (Morphine 4 Mg/Ml Syringe) 4 mg IVPUSH ONETIME ONE Stop: 09/24/20 12:38 Last Admin: 09/24/20 12:44 Dose: 4 mg Documented by: Morphine Sulfate (Morphine 4 Mg/Ml Syringe) 4 mg IVPUSH ONETIME ONE Stop: 09/24/20 13:42 Last Admin: 09/24/20 13:46 Dose: 4 mg Documented by: Morphine Sulfate (Morphine 4 Mg/Ml Syringe) 4 mg IVPUSH ONETIME ONE Stop: 09/24/20 15:06 Last Admin: 09/24/20 15:25 Dose: 4 mg Documented by: Ondansetron HCl (Ondansetron 4 Mg/2 Ml Sdv) 4 mg IVPUSH ONETIME ONE Stop: 09/24/20 12:38 Last Admin: 09/24/20 12:44 Dose: 4 mg Documented by: Ondansetron HCl (Ondansetron 4 Mg/2 Ml Sdv) 4 mg IVPUSH ONETIME ONE Stop: 09/24/20 15:06 Last Admin: 09/24/20 15:25 Dose: 4 mg Documented by: Ondansetron HCl (Ondansetron 4 Mg/2 Ml Sdv) Confirm Administered Dose 4 mg .ROUTE .STK-MED ONE Stop: 09/24/20 16:28 Propofol (Propofol 200 Mg/20 Ml Sdv) Confirm Administered Dose 200 mg .ROUTE .STK-MED ONE Stop: 09/24/20 16:31 Rocuronium [place] (Rocuronium [place] 50 Mg/5 Ml Syringe) Confirm Administered Dose 50 mg .ROUTE .STK-MED ONE Stop: 09/24/20 16:28 Sugammadex Sodium (Sugammadex Sodium 200 Mg/2 Ml Vial) Confirm Administered Dose 200 mg .ROUTE .STK-MED ONE Stop: 09/24/20 16:28
[2020-09-24] MEDS ORDERED: Acetaminophen 325 MG Tab PO PRN (18:49)
[2020-09-24] MEDS ORDERED: Ondansetron 4 MG/2 ML SDV IVPUSH PRN (18:49)
--- NOTE | 2020-09-24 18:59 | PCM.OPNOTE ---
- General Post-Op/Procedure Note Date of Surgery/Procedure: 09/24/20 Operative Procedure(s): Laparoscopic appendectomy Pre Op Diagnosis: Acute abdomen Post-Op Diagnosis: Acute nonruptured appendicitis with localized peritonitis Anesthesia Technique: General ET Tube (ASA IIE) Primary Surgeon: Merlin Amador Fluid Replacement, Intraop: 800 Output, Urine Amount: 320 EBL in mLs: 10 Condition: Good Free Text/Narrative:: DICTATION [id number] CPT CODE 06912
--- NOTE | 2020-09-24 19:21 | PCM.POSTAN ---
POST ANESTHESIA ASSESSMENT - MENTAL STATUS Mental Status: Alert, Oriented - VITAL SIGNS Vital Signs: Last Vital Signs Temp 36.7 C 09/24/20 18:58 Pulse 78 09/24/20 19:18 Resp 15 09/24/20 19:18 BP 125/68 09/24/20 19:18 Pulse Ox 95 09/24/20 19:18 - RESPIRATORY Respiratory Status: Respiratory Rate WNL, Airway Patent, O2 Saturation Stable - CARDIOVASCULAR CV Status: Pulse Rate WNL, Blood Pressure Stable - GASTROINTESTINAL GI Status: No Symptoms - POST OP HYDRATION Hydration Status: Adequate & Stable
--- NOTE | 2020-09-24 19:22 | PCM48HPAN ---
Post Anesthesia Note - EVALUATION WITHIN 48HRS OF ANESTHETIC Vital Signs in Normal Range: Yes Patient Participated in Evaluation: Yes Respiratory Function Stable: Yes Airway Patent: Yes Cardiovascular Function Stable: Yes Hydration Status Stable: Yes Pain Control Satisfactory: Yes Nausea and Vomiting Control Satisfactory: Yes Mental Status Recovered: Yes Vital Signs: Last Vital Signs Temp 36.7 C 09/24/20 18:58 Pulse 78 09/24/20 19:18 Resp 15 09/24/20 19:18 BP 125/68 09/24/20 19:18 Pulse Ox 95 09/24/20 19:18
--- NOTE | 2020-09-24 19:40 | OR ---
SURGEON: Merlin Amador M.D. DATE OF PROCEDURE: 09/24/2020 OPERATION PERFORMED: Laparoscopic appendectomy. PRIMARY SURGEON: Merlin Amador M.D. ANESTHESIA: General endotracheal. ASA CLASSIFICATION: IIE. PREOPERATIVE DIAGNOSIS: Acute abdomen. POSTOPERATIVE DIAGNOSIS: Acute appendicitis with localized peritonitis, no perforation. ESTIMATED BLOOD LOSS: 10 mL. INTRAOPERATIVE FLUID REPLACEMENT: 800 mL of crystalloid. INTRAOPERATIVE URINARY OUTPUT: 320 mL. DESCRIPTION OF PROCEDURE: The patient was taken to the operating room and placed on the operating table in the supine position. Time-out was called for appropriate identification of the patient and procedure. Thigh-high TEDs and sequential compression boots were placed. Following satisfactory attainment of general endotracheal anesthesia, a time-out had been called for appropriate identification of the patient and procedure. The abdomen was then prepped with DuraPrep solution and sterile drapes were applied. The skin just above the umbilicus was infiltrated with 0.5% Marcaine solution. Skin incision was made and deepened through the subcutaneous tissue obtaining hemostasis with the use of electrocautery. The Veress needle was introduced into the peritoneal cavity. Saline drop test was positive. Carbon dioxide pneumoperitoneum was established with the release set at 13 cm of water. Once a satisfactory pneumoperitoneum was established, 5 mm camera and port were placed through the supraumbilical incision into the peritoneal cavity. The patient did have a few adhesions, but these did not pose a significant problem. With the [address], our attention was turned to the pelvis identifying the appropriate location for the 12 mm suprapubic port. Once that was identified, the skin was infiltrated again with 0.5% Marcaine solution. Skin incision was made and then using electrocautery, deepened into the subcutaneous tissue. The 12 mm port was placed under direct camera vision without difficulty. With that accomplished, a left lower quadrant port was placed, although this was a little more difficult secondary to some adhesions. Again, the skin was infiltrated with 0.5% Marcaine solution. Skin incision was then made. Hemostasis was obtained with the use of electrocautery and a 5 mm port was placed through that. The appendix was acutely inflamed, although did not show signs of perforation. We were able to grasp the appendix and take the mesoappendix down with the use of the Harmonic scalpel. Because the base was quite thick, it was elected to use the Endo JORGE with a blue load fired across the base of the appendix. The appendix was promptly placed in an EndoCatch bag and maintained in situ. The staple line appeared intact. The right lower quadrant was then irrigated with several hundred milliliters of 1% Ancef solution. All of that fluid was aspirated. The patient was returned to a neutral position as he had been positioned with his head down and rolled to the left for the appendectomy. All fluid was aspirated. The EndoCatch bag containing the appendix and 12 mm port were removed under camera vision. The 5 mm left lower quadrant port was removed under camera vision and finally the supraumbilical camera and port were removed. Wounds were inspected for hemostasis and small bleeding sites were electrocoagulated. All incisions were closed in 2 layers approximating the subcutaneous tissue with 3-0 Vicryl and the skin with subcuticular 4-0 Monocryl. All incisions were Steri-Stripped and dressed with sterile Tegaderm pads. Sponge, needle, and instrument counts were all correct. The Salazar catheter was removed prior to emergence from anesthesia. Following emergence from anesthesia and extubation, the patient was taken to recovery room in stable condition. TABITHA / MAGUI /[id number]
[2020-09-24] MEDS: Lactated Ringers 1,000 ML IV SCH (19:58)
[2020-09-24] MEDS: cefOXitin 2 GM in Premix Bag 1 BAG IV SCH (21:23)
[2020-09-24] MEDS: Morphine 10 MG/ML Syringe IVPUSH PRN ×2 (21:57→23:37)
[2020-09-25] MEDS: Acetaminophen/HYDROcodone 325-5 MG Tab PO PRN ×3 (01:20→09:59)
[2020-09-25] MEDS: cefOXitin 2 GM in Premix Bag 1 BAG IV SCH (03:26)
[2020-09-25 04:42] VITALS: BP 120/78; PULSE 72
[2020-09-25] MEDS: Lactated Ringers 1,000 ML IV SCH (04:49)
[2020-09-25] MEDS ORDERED: Pantoprazole 40 MG Tab.CR PO SCH (09:00)
--- NOTE | 2020-09-25 09:42 | PCM.SURGPN ---
- General Info Date of Service: 09/25/20 POD#: 1 Post-Op Diagnosis: acute appendicitis Functional Status: Reports: Pain Controlled, Tolerating Diet, Ambulating, Urinating. Denies: New Symptoms - Review of Systems General: Denies: Fever, Weakness, Fatigue, Malaise, Chills HEENT: Reports: No Symptoms Pulmonary: Denies: Shortness of Breath, Pleuritic Chest Pain, Cough Cardiovascular: Denies: Chest Pain Gastrointestinal: Reports: Abdominal Pain (incisional). Denies: Decreased Appetite, Diarrhea, Nausea, Vomiting Genitourinary: Reports: No Symptoms Musculoskeletal: Reports: No Symptoms Skin: Reports: No Symptoms Neurological: Reports: No Symptoms Psychiatric: Reports: No Symptoms - Patient Data Vitals - Most Recent: Last Vital Signs Temp 97.6 F 09/25/20 04:41 Pulse 72 09/25/20 04:41 Resp 15 09/25/20 04:41 BP 120/78 09/25/20 04:41 Pulse Ox 97 09/25/20 04:41 Weight - Most Recent: 220 lb I&O - Last 24 Hours: Intake & Output 09/24/20 09/25/20 09/25/20 19:59 03:59 11:59 Intake Total 1700 50 1000 Output Total 640 1800 Balance 1060 50 -800 Lab Results Last 24 Hrs: Laboratory Results - last 24 hr 09/24/20 09/24/20 09/24/20 Range/Units 12:46 12:46 14:57 WBC 10.63 (4.0-11.0) K/uL RBC 5.45 (4.50-5.90) M/uL Hgb 15.4 (13.0-17.0) g/dL Hct 46.1 (38.0-50.0) % MCV 84.6 (80.0-98.0) fL MCH 28.3 (27.0-32.0) pg MCHC 33.4 (31.0-37.0) g/dL RDW Std Deviation 41.4 (28.0-62.0) fl RDW Coeff of Tammei 14 (11.0-15.0) % Plt Count 351 (150-400) K/uL MPV 9.80 (7.40-12.00) fL Neut % (Auto) 81.0 H (48.0-80.0) % Lymph % (Auto) 11.4 L (16.0-40.0) % [place] % (Auto) 6.4 (0.0-15.0) % Eos % (Auto) 0.9 (0.0-7.0) % Baso % (Auto) 0.3 (0.0-1.5) % Neut # (Auto) 8.6 H (1.4-5.7) K/uL Lymph # (Auto) 1.2 (0.6-2.4) K/uL [place] # (Auto) 0.7 (0.0-0.8) K/uL Eos # (Auto) 0.1 (0.0-0.7) K/uL Baso # (Auto) 0.0 (0.0-0.1) K/uL Nucleated RBC % 0.0 /100WBC Nucleated RBCs # 0 K/uL Sodium 139 (136-148) mmol/L Potassium 4.2 (3.5-5.1) mmol/L Chloride 103 (98-107) mmol/L Carbon Dioxide 30.2 (21.0-32.0) mmol/L BUN 10 (7.0-18.0) mg/dL Creatinine 1.3 (0.8-1.3) mg/dL Est Cr Clr Drug Dosing 72.13 mL/min Estimated GFR (MDRD) 57.7 ml/min Glucose 142 H (74-106) mg/dL Calcium 9.1 (8.5-10.1) mg/dL Total Bilirubin 0.3 (0.2-1.0) mg/dL AST 17 (15-37) IU/L ALT 32 (14-63) IU/L Alkaline Phosphatase 97 (46-116) U/L Total Protein 8.2 (6.4-8.2) g/dL Albumin 4.3 (3.4-5.0) g/dL Globulin 3.9 (2.6-4.0) g/dL Albumin/Globulin Ratio 1.1 (0.9-1.6) Urine Color Urine Appearance Urine pH (5.0-8.0) Ur Specific [place] (1.001-1.035) Urine Protein (NEGATIVE) mg/dL Urine Glucose (UA) (NEGATIVE) mg/dL Urine Ketones (NEGATIVE) mg/dL Urine Occult Blood (NEGATIVE) Urine Nitrite (NEGATIVE) Urine Bilirubin (NEGATIVE) Urine Urobilinogen (<2.0) EU/dL Ur Leukocyte Esterase (NEGATIVE) SARS-CoV-2 RNA (ELISE) NEGATIVE (NEGATIVE) 09/24/20 Range/Units 15:57 WBC (4.0-11.0) K/uL RBC (4.50-5.90) M/uL Hgb (13.0-17.0) g/dL Hct (38.0-50.0) % MCV (80.0-98.0) fL MCH (27.0-32.0) pg MCHC (31.0-37.0) g/dL RDW Std Deviation (28.0-62.0) fl RDW Coeff of Tammie (11.0-15.0) % Plt Count (150-400) K/uL MPV (7.40-12.00) fL Neut % (Auto) (48.0-80.0) % Lymph % (Auto) (16.0-40.0) % [place] % (Auto) (0.0-15.0) % Eos % (Auto) (0.0-7.0) % Baso % (Auto) (0.0-1.5) % Neut # (Auto) (1.4-5.7) K/uL Lymph # (Auto) (0.6-2.4) K/uL [place] # (Auto) (0.0-0.8) K/uL Eos # (Auto) (0.0-0.7) K/uL Baso # (Auto) (0.0-0.1) K/uL Nucleated RBC % /100WBC Nucleated RBCs # K/uL Sodium (136-148) mmol/L Potassium (3.5-5.1) mmol/L Chloride (98-107) mmol/L Carbon Dioxide (21.0-32.0) mmol/L BUN (7.0-18.0) mg/dL Creatinine (0.8-1.3) mg/dL Est Cr Clr Drug Dosing mL/min Estimated GFR (MDRD) ml/min Glucose (74-106) mg/dL Calcium (8.5-10.1) mg/dL Total Bilirubin (0.2-1.0) mg/dL AST (15-37) IU/L ALT (14-63) IU/L Alkaline Phosphatase (46-116) U/L Total Protein (6.4-8.2) g/dL Albumin (3.4-5.0) g/dL Globulin (2.6-4.0) g/dL Albumin/Globulin Ratio (0.9-1.6) Urine Color YELLOW Urine Appearance SLT CLOUDY Urine pH 7.5 (5.0-8.0) Ur Specific [place] 1.020 (1.001-1.035) Urine Protein NEGATIVE (NEGATIVE) mg/dL Urine Glucose (UA) NEGATIVE (NEGATIVE) mg/dL Urine Ketones NEGATIVE (NEGATIVE) mg/dL Urine Occult Blood NEGATIVE (NEGATIVE) Urine Nitrite NEGATIVE (NEGATIVE) Urine Bilirubin NEGATIVE (NEGATIVE) Urine Urobilinogen 0.2 (<2.0) EU/dL Ur Leukocyte Esterase NEGATIVE (NEGATIVE) SARS-CoV-2 RNA (ELISE) (NEGATIVE) Med Orders - Current: Current Medications Acetaminophen (Acetaminophen 325 Mg Tab) 325 mg PO Q4H PRN PRN Reason: Fever Greater Than 101 Hydrocodone Bitart/Acetaminophen (Acetaminophen/Hydrocodone 325-5 Mg Tab) 1 - 2 tab PO Q4H PRN PRN Reason: Pain (moderate 4-6) Last Admin: 09/25/20 05:39 Dose: 2 tab Documented by: Lactated Ringer's (Ringers, Lactated) 1,000 mls @ 125 mls/hr IV ASDIRECTED [facility] Last Admin: 09/25/20 04:49 Dose: 125 mls/hr Documented by: Cefoxitin Sodium 2 gm/ Premix 50 mls @ 100 mls/hr IV Q6H [facility] Stop: 09/25/20 10:29 Last Admin: 09/25/20 03:26 Dose: 100 mls/hr Documented by: Morphine Sulfate (Morphine 10 Mg/Ml Syringe) 0 mg IVPUSH Q1H PRN PRN Reason: Pain (severe 7-10) Last Admin: 09/24/20 23:37 Dose: 2 mg Documented by: Ondansetron HCl (Ondansetron 4 Mg/2 Ml Sdv) 4 mg IVPUSH Q6H PRN PRN Reason: Nausea/Vomiting Pantoprazole Sodium (Pantoprazole 40 Mg Tab.Cr) 40 mg PO DAILY [facility] Last Admin: 09/25/20 08:34 Dose: 40 mg Documented by: Sodium Chloride (Sodium Chloride 0.9% 10 Ml Syringe) 10 ml FLUSH ASDIRECTED PRN PRN Reason: Keep Vein Open Last Admin: 09/24/20 12:43 Dose: 10 ml Documented by: Sodium Chloride (Sodium Chloride 0.9% 2.5 Ml Syringe) 2.5 ml FLUSH ASDIRECTED PRN PRN Reason: Keep Vein Open Last Admin: 09/24/20 12:43 Dose: 2.5 ml Documented by: Discontinued Medications Bupivacaine HCl (Bupivacaine 0.5% 30 Ml Sdv) Confirm Administered Dose 30 ml .ROUTE .STK-MED ONE Stop: 09/24/20 16:42 Cefazolin Sodium (Cefazolin 1 Gm Vial) Confirm Administered Dose 1 gm .ROUTE .STK-MED ONE Stop: 09/24/20 16:42 Dexamethasone (Dexamethasone 4 Mg/Ml 5 Ml Mdv) Confirm Administered Dose 20 mg .ROUTE .STK-MED ONE Stop: 09/24/20 16:28 Dexmedetomidine HCl (Dexmedetomidine 200 Mcg/2 Ml Sdv) Confirm Administered Dose 200 mcg .ROUTE .STK-MED ONE Stop: 09/24/20 16:37 Fentanyl (Fentanyl 250 Mcg/5 Ml Sdv) Confirm Administered Dose 250 mcg .ROUTE .STK-MED ONE Stop: 09/24/20 16:30 Glycopyrrolate (Glycopyrrolate 0.2 Mg/Ml Sdv) Confirm Administered Dose 0.2 mg .ROUTE .STK-MED ONE Stop: 09/24/20 16:28 Sodium Chloride (Normal Saline) 1,000 mls @ 999 mls/hr IV STAT ONE Stop: 09/24/20 13:37 Last Admin: 09/24/20 12:43 Dose: 999 mls/hr Documented by: Lactated Ringer's (Ringers, Lactated) 1,000 mls @ 100 mls/hr IV ASDIRECTED [facility] Last Admin: 09/24/20 13:51 Dose: 100 mls/hr Documented by: Lactated Ringer's (Ringers, Lactated) 1,000 mls @ 125 mls/hr IV ASDIRECTED [facility] Last Admin: 09/24/20 16:49 Dose: 125 mls/hr Documented by: Cefoxitin Sodium 2 gm/ Premix 50 mls @ 100 mls/hr IV ONETIME ONE Stop: 09/24/20 16:48 Last Admin: 09/24/20 16:49 Dose: 100 mls/hr Documented by: Acetaminophen (Ofirmev 1000 Mg/100 Ml) Confirm Administered Dose 100 mls @ as directed .ROUTE .STK-MED ONE Stop: 09/24/20 16:29 Sodium Chloride (Normal Saline) Confirm Administered Dose 20 mls @ as directed .ROUTE .STK-MED ONE Stop: 09/24/20 16:41 Iopamidol (Iopamidol 755 Mg/Ml 500 Ml Multipack Bottle) 100 ml IVPUSH ONETIME STA Stop: 09/24/20 14:33 Last Admin: 09/24/20 14:32 Dose: 100 ml Documented by: Ketamine HCl (Ketamine 500 Mg/10 Ml Mdv) Confirm Administered Dose 500 mg .ROUTE .STK-MED ONE Stop: 09/24/20 16:29 Ketorolac Tromethamine (Ketorolac 30 Mg/Ml Sdv) Confirm Administered Dose 30 mg .ROUTE .STK-MED ONE Stop: 09/24/20 16:28 Lidocaine (Lidocaine 2% 5 Ml Sdv) Confirm Administered Dose 5 ml .ROUTE .STK-MED ONE Stop: 09/24/20 16:28 Metoclopramide HCl (Metoclopramide 10 Mg/2 Ml Sdv) Confirm Administered Dose 10 mg .ROUTE .STK-MED ONE Stop: 09/24/20 16:28 Morphine Sulfate (Morphine 4 Mg/Ml Syringe) 4 mg IVPUSH ONETIME ONE Stop: 09/24/20 12:38 Last Admin: 09/24/20 12:44 Dose: 4 mg Documented by: Morphine Sulfate (Morphine 4 Mg/Ml Syringe) 4 mg IVPUSH ONETIME ONE Stop: 09/24/20 13:42 Last Admin: 09/24/20 13:46 Dose: 4 mg Documented by: Morphine Sulfate (Morphine 4 Mg/Ml Syringe) 4 mg IVPUSH ONETIME ONE Stop: 09/24/20 15:06 Last Admin: 09/24/20 15:25 Dose: 4 mg Documented by: Ondansetron HCl (Ondansetron 4 Mg/2 Ml Sdv) 4 mg IVPUSH ONETIME ONE Stop: 09/24/20 12:38 Last Admin: 09/24/20 12:44 Dose: 4 mg Documented by: Ondansetron HCl (Ondansetron 4 Mg/2 Ml Sdv) 4 mg IVPUSH ONETIME ONE Stop: 09/24/20 15:06 Last Admin: 09/24/20 15:25 Dose: 4 mg Documented by: Ondansetron HCl (Ondansetron 4 Mg/2 Ml Sdv) Confirm Administered Dose 4 mg .ROUTE .STK-MED ONE Stop: 09/24/20 16:28 Propofol (Propofol 200 Mg/20 Ml Sdv) Confirm Administered Dose 200 mg .ROUTE .STK-MED ONE Stop: 09/24/20 16:31 Rocuronium [place] (Rocuronium [place] 50 Mg/5 Ml Syringe) Confirm Administered Dose 50 mg .ROUTE .STK-MED ONE Stop: 09/24/20 16:28 Sugammadex Sodium (Sugammadex Sodium 200 Mg/2 Ml Vial) Confirm Administered Dose 200 mg .ROUTE .STK-MED ONE Stop: 09/24/20 16:28 - Exam Wound/Incisions: Dressing Dry and Intact, No Drainage Quality Assessment: No: Supplemental Oxygen, Central Line/PICC, Urine Catheter General: Alert, Oriented, Cooperative, No Acute Distress HEENT: Pupils Equal, Pupils Reactive. No: Scleral Icterus Neck: Supple Lungs: Clear to Auscultation, Normal Respiratory Effort Cardiovascular: Regular Rate, Regular Rhythm, No Murmurs. No: Tachycardia GI/Abdominal Exam: Normal Bowel Sounds, Soft, Non-Tender Extremities: Normal Inspection, Non-Tender Skin: Warm, Dry, Intact Neurological: No New Focal Deficit Psy/Mental Status: Alert, Normal Affect, Normal Mood Sepsis Event Note - Evaluation Sepsis Screening Result: No Definite Risk - Focused Exam Vital Signs: Vital Signs Temp Pulse Resp BP Pulse Ox 09/25/20 04:41 97.6 F 72 15 120/78 97 09/24/20 23:30 97.8 F 75 16 134/89 97 09/24/20 22:15 97.6 F 81 16 148/75 H 97 - Problem List & Annotations (1) Appendicitis SNOMED Code(s): 03343392 Code(s): K37 - UNSPECIFIED APPENDICITIS Status: Acute Priority: High Current Visit: Yes Qualifiers: Appendicitis type: acute appendicitis Acute appendicitis type: with localized peritonitis Appendicitis gangrene presence: without gangrene Appendicitis perforation presence: without perforation Appendicitis abscess presence: without abscess Qualified Code(s): K35.30 - Acute appendicitis with localized peritonitis, without perforation or gangrene - Problem List Review Problem List Initiated/Reviewed/Updated: Yes - My Orders Last 24 Hours: Active Orders 24 hr Category Date Time Status Patient Status [ADT] Routine ADT 09/24/20 18:51 Active Antiembolic Devices [RC] PER UNIT ROUTINE Care 09/24/20 16:20 Active Insert Urinary Catheter [OM.PC] Timed Care 09/24/20 16:19 Ordered Oxygen Therapy [RC] ASDIRECTED Care 09/24/20 16:19 Active Oxygen Therapy [RC] PRN Care 09/24/20 18:48 Active Pulse Oximetry [RC] ASDIRECTED Care 09/24/20 18:48 Active RT Incentive Spirometry [RC] Q1HWA Care 09/24/20 16:19 Active RT Incentive Spirometry [RC] Q1HWA Care 09/24/20 18:48 Active Ready for Discharge [RC] PER UNIT ROUTINE Care 09/25/20 08:51 Active Skin Preparation [RC] .PREOP Care 09/24/20 16:19 Active Up ad Lois [RC] PER UNIT ROUTINE Care 09/24/20 18:48 Active Urinary Catheter Assessment [RC] ASDIRECTED Care 09/24/20 16:19 Active Urinary Catheter Assessment [RC] ASDIRECTED Care 09/24/20 16:19 Active Urinary Catheter Assessment [RC] ASDIRECTED Care 09/24/20 16:20 Active Vital Signs [RC] PER UNIT ROUTINE Care 09/24/20 16:19 Active Vital Signs [RC] PER UNIT ROUTINE Care 09/24/20 18:48 Active Regular Diet [DIET] Diet 09/25/20 Breakfast Active Acetaminophen [TylenoL] Med 09/24/20 18:49 Active 325 mg PO Q4H PRN Acetaminophen/HYDROcodone [Gladys 325-5 MG] Med 09/24/20 18:49 Active 1 - 2 tab PO Q4H PRN Lactated Ringers [Ringers, Lactated] 1,000 ml Med 09/24/20 19:00 Active IV ASDIRECTED Morphine Med 09/24/20 18:49 Active See Dose Instructions IVPUSH Q1H PRN Ondansetron [Zofran] Med 09/24/20 18:49 Active 4 mg IVPUSH Q6H PRN Pantoprazole [ProTONIX] Med 09/25/20 09:00 Active 40 mg PO DAILY Sodium Chloride 0.9% [Saline Flush] Med 09/24/20 12:18 Active 10 ml FLUSH ASDIRECTED PRN Sodium Chloride 0.9% [Saline Flush] Med 09/24/20 12:18 Active 2.5 ml FLUSH ASDIRECTED PRN cefOXitin [Mefoxin in Dextrose,Iso-Osm 2 GM/50 ML] 2 gm Med 09/24/20 22:00 Active Premix Bag 1 bag IV Q6H Antiembolic Hose [OM.PC] Routine Oth 09/24/20 16:19 Ordered Saline Lock Insert [OM.PC] Stat Oth 09/24/20 12:18 Ordered Resuscitation Status Routine Resus Stat 09/24/20 16:19 Ordered Medication Orders Acetaminophen (Acetaminophen 325 Mg Tab) 325 mg PO Q4H PRN PRN Reason: Fever Greater Than 101 Hydrocodone Bitart/Acetaminophen (Acetaminophen/Hydrocodone 325-5 Mg Tab) 1 - 2 tab PO Q4H PRN PRN Reason: Pain (moderate 4-6) Last Admin: 09/25/20 05:39 Dose: 2 tab Documented by: Admin: 09/25/20 01:20 Dose: 2 tab Documented by: NANY Lactated Ringer's (Ringers, Lactated) 1,000 mls @ 125 mls/hr IV ASDIRECTED DAMIEN Last Admin: 09/25/20 04:49 Dose: 125 mls/hr Documented by: Infusion: 09/25/20 03:58 Dose: 125 mls/hr Documented by: Admin: 09/24/20 19:58 Dose: 125 mls/hr Documented by: NANY Cefoxitin Sodium 2 gm/ Premix 50 mls @ 100 mls/hr IV Q6H [facility] Stop: 09/25/20 10:29 Last Admin: 09/25/20 03:26 Dose: 100 mls/hr Documented by: Infusion: 09/24/20 21:53 Dose: 100 mls/hr Documented by: Admin: 09/24/20 21:23 Dose: 100 mls/hr Documented by: NANY Morphine Sulfate (Morphine 10 Mg/Ml Syringe) 0 mg IVPUSH Q1H PRN PRN Reason: Pain (severe 7-10) Last Admin: 09/24/20 23:37 Dose: 2 mg Documented by: Admin: 09/24/20 21:57 Dose: 2 mg Documented by: NANY Ondansetron HCl (Ondansetron 4 Mg/2 Ml Sdv) 4 mg IVPUSH Q6H PRN PRN Reason: Nausea/Vomiting Pantoprazole Sodium (Pantoprazole 40 Mg Tab.Cr) 40 mg PO DAILY [facility] Last Admin: 09/25/20 08:34 Dose: 40 mg Documented by: ENID Sodium Chloride (Sodium Chloride 0.9% 10 Ml Syringe) 10 ml FLUSH ASDIRECTED PRN PRN Reason: Keep Vein Open Last Admin: 09/24/20 12:43 Dose: 10 ml Documented by: LADONNA Sodium Chloride (Sodium Chloride 0.9% 2.5 Ml Syringe) 2.5 ml FLUSH ASDIRECTED PRN PRN Reason: Keep Vein Open Last Admin: 09/24/20 12:43 Dose: 2.5 ml Documented by: LADONNA - Assessment Assessment (Free Text/Narrative):: Patient is had a good night. His pain is well-controlled with oral analgesics. He is tolerating a regular diet without nausea or vomiting. He would like to go home today. - Plan Plan (Free Text/Narrative):: Patient will be discharged from the hospital today. He will be given a follow- up appointment to see me on October 02. He may return to light duty on September 29, but is not to lift more than 25 pounds for 6 weeks. He was given a prescription for Gladys 5/325, 1-2 tablets at bedtime as needed for pain. 10. Tablets were dispensed.
== END 2020-09-25 10:00 | disposition home or self-care (01) ==
LOC: MW.ED 12:13 → MW.SDS 16:29 → MW.MS 17:20 → MW.SDS 09-25 10:00
PROVIDERS: ATTEND Surgery
DX: K35.30 Acute appendicitis with localized peritonitis, without perforation or gangrene (principal); E66.9 Obesity, unspecified; F17.210 Nicotine dependence, cigarettes, uncomplicated; Z98.890 Other specified postprocedural states; Z01.812 Encounter for preprocedural laboratory examination; Z20.822 Contact with and (suspected) exposure to COVID-19
CPT/HCPCS: 44970; 74177; 80053; 81003; 85025; 87635; 96374; 96375; 96376; 99285; A9270; J0131; J0330; J0690; J0694; J1100; J1885; J2270; J2405; J2704; J2765; J3010; J3490; J7030; J7120; Q9967; 00840; U0002

== ENCOUNTER 2020-10-10 15:06 | Emergency (ER) | payer BC ==
--- NOTE | 2020-10-10 15:43 | EDM.PDOC ---
ED HPI GENERAL MEDICAL PROBLEM - General Stated Complaint: ABD PAIN P SX Time Seen by Provider: 10/10/20 15:43 Source of Information: Reports: Patient History Limitations: Reports: No Limitations - History of Present Illness INITIAL COMMENTS - FREE TEXT/NARRATIVE: HISTORY AND PHYSICAL: History of present illness: Patient is a 54-year-old male who presents to the emergency room with complaints of right lower quadrant pain. Patient was seen in the emergency room on 09/24/2020 for right lower quadrant pain and was taken to the OR for an appendectomy. Patient states he continues to have the right lower quadrant pain after surgery and was informed he should have a repeat CT scan. Patient states even though he had the appendectomy he continues to have right lower quadrant pain. Patient denies any fever, chills, headache, change in vision, syncope or near syncope. Denies any chest pain, back pain, shortness of breath or cough. Denies any abdominal pain, nausea, vomiting, diarrhea, constipation or dysuria. Has not noted any blood in urine or stool. Patient has been eating and drinking appropriately. Review of systems: As per history of present illness and below otherwise all systems reviewed and negative. Past medical history: As per history of present illness and as reviewed below otherwise noncontributory. Surgical history: As per history of present illness and as reviewed below otherwise noncontributory. Social history: See social history for further information Family history: As per history of present illness and as reviewed below otherwise noncontributory. Physical exam: General: Well developed and well nourished. Alert and orientated x 3. Nontoxic in appearance and in no acute distress. Vital signs are stable and have been reviewed by me. Nursing notes were reviewed. HEENT: Atraumatic, normocephalic, pupils equal and reactive bilaterally, negative for conjunctival pallor or scleral icterus, mucous membranes moist, TMs normal bilaterally, throat clear, neck supple, nontender, trachea midline. No drooling or trismus noted. No meningeal signs. No hot potato voice noted. Lungs: Clear to auscultation bilaterally. No wheezes, rales, or rhonchi. Chest nontender. Normal work of breathing, no accessory muscles used. Heart: S1S2, regular rate and rhythm without overt murmur, gallops, or rubs. No JVD. No peripheral edema Abdomen: Soft, nondistended, nontender. Normoactive bowel sounds. Negative for masses or costovertebral tenderness. Skin: Intact, warm, dry. No lesions or rashes noted. Hematologic: No petechiae or purpra. Mucosa appropriate color and normal nail bed color and refill. Extremities: Atraumatic, moves all extremities per self without difficulty or deficits, negative for cords or calf pain. Neurovascular unremarkable. Neuro: Awake, alert, oriented. Cranial nerves II through XII unremarkable. Cerebellum unremarkable. Motor and sensory unremarkable throughout. Exam nonfocal. Psychiatric: Mood and affect are appropriate. Normal thought process. Answering questions appropriately. Notes: *This patient was seen and evaluated during the 2019 SARS-CoV-2 novel coronavirus pandemic period. Community viral transmission is ongoing at time of this encounter and the emergency department is operating under pandemic response procedures. 09/24/20: Patient had an appendectomy by Dr. Amador. Lab work is unremarkable. CT shows post appendectomy changes. A small abscess along the inferior aspect of the right hepatic lobe. Small right lower quadrant fluid at the appendectomy bed with mild adjacent peritoneal enhancement which could represent focal peritonitis or early partial loculation. A 1.4 cm soft tissue density at the bladder base could be related to the underlying prostate, however, without significant prostatic enlargement, and a urothelial lesion should be excluded. I did consult Dr. Mcgowan, surgeon flight communications specialist, about this patient. He states he did briefly talk with Dr. Amador about this case. He will come in and see the patient and likely discharge the patient on antibiotics after evaluation. Dr Mcgowan is here to see patient. Will send patient home on Levaquin and flagyl. I have talked with the patient about today's findings, in addition to providing specific details for plan of care. He will follow up with Perry next week. Reassessment at the time of disposition demonstrates that the patient is in no acute distress. The patient is stable for discharge, counseling was provided and we discussed in great detail signs and symptoms that would prompt them to return to the Emergency Department. Medication, follow up and supportive care measures were reviewed and discussed. Voices understanding and is agreeable to plan of care. Denies any further questions or concerns at this time. Diagnostics: CBC, CMP, UA, lipase Therapeutics: IV fluid, Toradol Prescription: None Impression: Abdominal pain Plan: 1. You were evaluated today on an emergent basis. Please take the antibiotic as directed. 2. You can alternate Tylenol and ibuprofen as needed for pain and fever management. 3. We encourage you to follow up with Dr Amador in the next few days for re- evaluation and further care/management. 4. If your symptoms should worsen, new symptoms develop or any of the signs and symptoms we discussed should arise please return to the emergency room or call 911 (if needed). Definitive disposition and diagnosis as appropriate pending reevaluation and review of above. RLQ Pain Score (Numeric/FACES): 6 - Related Data Allergies Allergy/AdvReac Type Severity Reaction Status Date / Time No Known Allergies Allergy Verified 10/10/20 15:50 Home Meds: Home Meds Esomeprazole [NexIUM] 40 mg PO DAILY 11/05/16 [History] Hydrocodone/Acetaminophen [HYDROcodone-Acetaminophen 5-325 MG] 1 tab PO ASDIRECTED PRN 10/10/20 [History] levoFLOXacin [Levaquin] 750 mg PO DAILY 10 Days #10 tab 10/10/20 [Rx] metroNIDAZOLE [Flagyl] 500 mg PO BID 10 Days #20 tab 10/10/20 [Rx] Past Medical History - Past Health History Medical/Surgical History: Denies Medical/Surgical History HEENT History: Reports: None Cardiovascular History: Reports: None Respiratory History: Reports: None Gastrointestinal History: Reports: Cholelithiasis, GERD Genitourinary History: Reports: None Musculoskeletal History: Reports: Fracture Other Musculoskeletal History: hx of fx left wrist Neurological History: Reports: None Psychiatric History: Reports: None Endocrine/Metabolic History: Reports: Obesity/BMI 30+ Hematologic History: Reports: None Immunologic History: Reports: None Oncologic (Cancer) History: Reports: None Dermatologic History: Reports: None - Infectious Disease History Infectious Disease History: Reports: None - Past Surgical History Head Surgeries/Procedures: Reports: None HEENT Surgical History: Reports: Oral Surgery, Tonsillectomy Cardiovascular Surgical History: Reports: None Respiratory Surgical History: Reports: None GI Surgical History: Reports: Cholecystectomy Other GI Surgeries/Procedures: lap brien on 11/11/16 Male Surgical History: Reports: None Endocrine Surgical History: Reports: None Neurological Surgical History: Reports: None Musculoskeletal Surgical History: Reports: None Oncologic Surgical History: Reports: None Dermatological Surgical History: Reports: None Social & Family History - Family History Family Medical History: No Pertinent Family History - Caffeine Use Caffeine Use: Reports: Coffee ED ROS GENERAL - Review of Systems Review Of Systems: Comprehensive ROS is negative, except as noted in HPI. ED EXAM, GI/ABD - Physical Exam Exam: See Below (See dictation) Course - Vital Signs Last Recorded V/S: Last Vital Signs Temp 97.9 F 10/10/20 15:48 Pulse 91 10/10/20 15:48 Resp 17 10/10/20 15:48 BP 138/90 10/10/20 15:48 Pulse Ox 96 10/10/20 15:48 - Orders/Labs/Meds Labs: Laboratory Tests 10/10/20 10/10/20 10/10/20 Range/Units 15:52 16:14 16:17 WBC 10.74 (4.0-11.0) K/uL RBC 4.95 (4.50-5.90) M/uL Hgb 14.1 (13.0-17.0) g/dL Hct 41.8 (38.0-50.0) % MCV 84.4 (80.0-98.0) fL MCH 28.5 (27.0-32.0) pg MCHC 33.7 (31.0-37.0) g/dL RDW Std Deviation 40.8 (28.0-62.0) fl RDW Coeff of Tammie 13 (11.0-15.0) % Plt Count 529 H (150-400) K/uL MPV 9.00 (7.40-12.00) fL Neut % (Auto) 74.7 (48.0-80.0) % Lymph % (Auto) 17.7 (16.0-40.0) % [place] % (Auto) 6.3 (0.0-15.0) % Eos % (Auto) 0.7 (0.0-7.0) % Baso % (Auto) 0.6 (0.0-1.5) % Neut # (Auto) 8.0 H (1.4-5.7) K/uL Lymph # (Auto) 1.9 (0.6-2.4) K/uL [place] # (Auto) 0.7 (0.0-0.8) K/uL Eos # (Auto) 0.1 (0.0-0.7) K/uL Baso # (Auto) 0.1 (0.0-0.1) K/uL Nucleated RBC % 0.0 /100WBC Nucleated RBCs # 0 K/uL Sodium 137 (136-148) mmol/L Potassium 4.4 (3.5-5.1) mmol/L Chloride 100 (98-107) mmol/L Carbon Dioxide 30.4 (21.0-32.0) mmol/L BUN 17 (7.0-18.0) mg/dL Creatinine 1.3 (0.8-1.3) mg/dL Est Cr Clr Drug Dosing 72.13 mL/min Estimated GFR (MDRD) 57.7 ml/min Glucose 89 (74-106) mg/dL Calcium 9.1 (8.5-10.1) mg/dL Total Bilirubin 0.3 (0.2-1.0) mg/dL AST 14 L (15-37) IU/L ALT 27 (14-63) IU/L Alkaline Phosphatase 119 H (46-116) U/L Total Protein 8.1 (6.4-8.2) g/dL Albumin 3.9 (3.4-5.0) g/dL Globulin 4.2 H (2.6-4.0) g/dL Albumin/Globulin Ratio 0.9 (0.9-1.6) Lipase 85 (73-393) U/L Urine Color YELLOW Urine Appearance CLEAR Urine pH 6.0 (5.0-8.0) Ur Specific Likely 1.025 (1.001-1.035) Urine Protein NEGATIVE (NEGATIVE) mg/dL Urine Glucose (UA) NEGATIVE (NEGATIVE) mg/dL Urine Ketones NEGATIVE (NEGATIVE) mg/dL Urine Occult Blood NEGATIVE (NEGATIVE) Urine Nitrite NEGATIVE (NEGATIVE) Urine Bilirubin NEGATIVE (NEGATIVE) Urine Urobilinogen 0.2 (<2.0) EU/dL Ur Leukocyte Esterase NEGATIVE (NEGATIVE) Meds: Medications Discontinued Medications Generic Name Dose Route Start Last Admin Trade Name Freq PRN Reason Stop Dose Admin Sodium Chloride 1,000 mls @ 999 mls/hr 10/10/20 15:52 10/10/20 16:16 Normal Saline IV 10/10/20 16:52 999 mls/hr STAT ONE Administration Iopamidol 100 ml 10/10/20 17:41 10/10/20 17:42 Iopamidol 755 Mg/Ml 500 Ml Multipack Bottle IVPUSH 10/10/20 17:42 100 ml ONETIME STA Administration Ketorolac Tromethamine 30 mg 10/10/20 16:12 10/10/20 16:20 Ketorolac 30 Mg/Ml Sdv IVPUSH 10/10/20 16:13 30 mg ONETIME ONE Administration Departure - Departure Time of Disposition: 19:29 Disposition: Home, Self-Care 01 Clinical Impression: Abdominal pain Qualifiers: Abdominal location: right lower quadrant Qualified Code(s): R10.31 - Right lower quadrant pain - Discharge Information Prescriptions: metroNIDAZOLE [Flagyl] 500 mg PO BID 10 Days #20 tab levoFLOXacin [Levaquin] 750 mg PO DAILY 10 Days #10 tab Instructions: Abdominal Pain, Adult, [id number] Referrals: Merlin Amador MD [Primary Care Provider] - Additional Instructions: The following information is given to patients seen in the emergency department who are being discharged to home. This information is to outline your options for follow-up care. We provide all patients seen in our emergency department with a follow-up referral. The need for follow-up, as well as the timing and circumstances, are variable depending upon the specifics of your emergency department visit. If you don't have a primary care physician on staff, we will provide you with a referral. We always advise you to contact your personal physician following an emergency department visit to inform them of the circumstance of the visit and for follow-up with them and/or the need for any referrals to a consulting specialist. The emergency department will also refer you to a specialist when appropriate. This referral assures that you have the opportunity for follow-up care with a specialist. All of these measure are taken in an effort to provide you with optimal care, which includes your follow-up. Under all circumstances we always encourage you to contact your private physician who remains a resource for coordinating your care. When calling for follow-up care, please make the office aware that this follow-up is from your recent emergency room visit. If for any reason you are refused follow-up, please contact the [facility] Emergency Department at and asked to speak to the emergency department charge nurse. [facility] [address] [place] [id number] [facility] [address] [place] [address] Thank you for choosing the [facility] emergency department in [place] for your medical needs today. It was a pleasure caring for you. Today you were seen in the emergency department for abdominal pain. 1. You were evaluated today on an emergent basis. Please take the antibiotic as directed. 2. You can alternate Tylenol and ibuprofen as needed for pain and fever management. 3. We encourage you to follow up with Dr Amador in the next few days for re- evaluation and further care/management. 4. If your symptoms should worsen, new symptoms develop or any of the signs and symptoms we discussed should arise please return to the emergency room or call 911 (if needed). Sepsis Event Note (ED) - Focused Exam Vital Signs: Vital Signs Temp Pulse Resp BP Pulse Ox 10/10/20 15:48 97.9 F 91 17 138/90 96
[2020-10-10 15:50] VITALS: BP 138/90; PULSE 91
[2020-10-10] MEDS ORDERED: Sodium Chloride 0.9% 1,000 ML IV ONE (15:52)
[2020-10-10] MEDS ORDERED: Ketorolac 30 MG/ML SDV IVPUSH ONE (16:12)
[2020-10-10 16:48] LABS: CARBON DIOXIDE,CO2 30.4 mmol/L (21.0-32.0); POTASSIUM,K 4.4 mmol/L (3.5-5.1)
[2020-10-10] MEDS ORDERED: Iopamidol 755 MG/ML 500 ML Multipack Bottle IVPUSH STA (17:41)
--- NOTE | 2020-10-10 18:36 | CT ---
INDICATION: Right lower quadrant pain, status post appendectomy TECHNIQUE: CT abdomen and pelvis acquired with IV contrast. 100 mL of Isovue 370 administered. COMPARISON: None available FINDINGS: Lower chest: Minor subsegmental atelectasis. Liver: Unremarkable. Spleen: Unremarkable. Pancreas: Unremarkable. Gallbladder and bile ducts: Cholecystectomy. Adrenal glands: Unremarkable. Kidneys: Unremarkable. GI tract: Post appendectomy changes. Small fluid at the appendectomy bed with focal enhancement along the adjacent peritoneal reflection. A small peripherally enhancing fluid collection along the inferior aspect of the right hepatic tip, measuring approximately 4.0 x 0.9 x 1.0 cm, consistent with a small abscess. No bowel obstruction. Few left colonic diverticula without diverticulitis. Vascular structures: Atherosclerotic changes. Lymph nodes: No abnormally enlarged lymph nodes. Few shotty subcentimeter right lower quadrant mesenteric lymph nodes, probably reactive. Miscellaneous: No free air. Pelvic Organs: A 1.4 cm soft tissue density at the bladder base which could be related to the underlying prostate, however without significant prostatic enlargement. Bones: Unremarkable for age. IMPRESSION: Post appendectomy changes. A small abscess along the inferior aspect of the right hepatic lobe. Small right lower quadrant fluid at the appendectomy bed with mild adjacent peritoneal enhancement which could represent focal peritonitis or early partial loculation. A 1.4 cm soft tissue density at the bladder base could be related to the underlying prostate, however, without significant prostatic enlargement, and a urothelial lesion should be excluded. Please note that all CT scans at this facility use dose modulation, iterative reconstruction, and/or weight-based dosing when appropriate to reduce radiation dose to as low as reasonably achievable. Dictated by Christoph Sung MD @ 10/10/2020 6:35:[address] Christoph Sung @ Oct 10 2020 6:35PM
--- NOTE | 2020-10-11 12:43 | ER ---
SUBJECTIVE: The patient is a pleasant 54-year-old gentleman who back on September 24, almost 2 weeks ago had a laparoscopic appendectomy done by Dr. Merlin Amador. This was reported as nonperforated. The patient says since the surgery, he has been doing okay, but has a persistent right lower abdominal pain. He did see Dr. Amador last week. The patient tried to see him today, but was told to go to the ER. The patient's pain has not increased, but it has not really gotten better. He denies any fevers or chills. He denies nausea or vomiting. He says otherwise he is feeling well. He says that he is actually feeling very hungry currently. In the ER, he did have some lab work done which showed no elevation of white cell count. He did have a CT scan that did show a little bit of fluid with some mild adjacent peritoneal enhancement and a small abscess along the right hepatic lobe, this abscess is fairly long and skinny. I did review the CT scan, this did not look like it would need IR drainage. PAST MEDICAL HISTORY: GERD. PAST SURGICAL HISTORY: 1. Appendectomy. 2. Cholecystectomy. CURRENT HOME MEDICATIONS: Nexium. REVIEW OF SYSTEMS: Complete 12-point review of systems was done and was negative except for what was in the HPI. PHYSICAL EXAMINATION: GENERAL: The patient is lying comfortably in his ER bed. He is alert and oriented, in no acute distress. VITAL SIGNS: Temperature is 97.9, pulse is 91, blood pressure is 138/90, satting 96% on room air. LUNGS: Clear to auscultation bilaterally. No rhonchi or wheezing heard. HEART: Regular rhythm. No murmur appreciated. ABDOMEN: Soft and nondistended. His incisions are well healed. No signs of infection. He does have some right lower quadrant pain to palpation. No guarding. No rebound tenderness. IMAGING: As per HPI. LABORATORY DATA: White cell count is 10.74, hemoglobin 14.1, platelet count is 529. Sodium 139, potassium is 4.4, chloride 100, bicarb is 30.4, BUN is 30, creatinine 1.3, glucose is 89. ASSESSMENT AND PLAN: The patient is a pleasant 54-year-old gentleman status post laparoscopic appendectomy. In looking at the CT scan, again, he has a small abscess under his live and kind of a phlegmon at the operative site. On review, these are fairly small and I do not feel at this time they need IR drainage. I did go over with the patient that he will be given antibiotics. This will be treated as an outpatient. The patient agrees and likes this plan. I did go over with the patient again it is important if he has fever, chills, or the pain increases, or has nausea, vomiting, or symptoms change, he is to come right into the ER again. Otherwise, he should follow up with Dr. Amador next week. I did discuss the plan with the ER provider. POLO KILGORE /[id number] GINA
== END 2020-10-10 19:36 | disposition home or self-care (01) ==
LOC: MW.ED 15:06
DX: R10.31 Right lower quadrant pain (principal); Z90.49 Acquired absence of other specified parts of digestive tract
CPT/HCPCS: 36415; 74177; 80053; 81003; 83690; 85025; 96374; 99284; J1885; J7030; Q9967